=== PATIENT | female | born 1955 | race Caucasian/White ===

== ENCOUNTER 2017-11-07 18:00 | Inpatient (IN) | END 2017-11-11 17:50 | DRG 482 ==

== ENCOUNTER 2018-06-08 11:23 | Inpatient (IN) | payer OTHER ==
[2018-06-08] VITALS (31 sets, daily range): BP systolic 104–187; BP diastolic 50–83; PULSE 68–108; RESP 13–22; Ht 160 cm; Wt 50.1 kg
[~2018-06-08] VITALS: Ht 160 cm; Wt 50.1 kg
[~2018-06-08 11:23] MED LIST: ALEN70TA5 PO; ANAS1TAB PO; CALC1TAB79 PO; ERGO2000 PO; ESCI10TA PO; ESCI5TAB PO
--- NOTE | 2018-06-08 13:01 | HPN ---
Date/Time of Note Date/Time of Note DATE: 06/08/18 TIME: 13:00 Interval H&P Admission Note Pt. seen H&P reviewed: No system changes DINORA VICTORIA MD Jun 08, 2018 13:01
[2018-06-08] MEDS ORDERED: NEOSTIGMINE 3 MG/3 ML SYRINGE ONE (13:26)
[2018-06-08] MEDS ORDERED: PROPOFOL 20 ML ONE (13:26)
[2018-06-08] MEDS ORDERED: GLYCOPYRROLATE 0.4 MG INJ ONE (13:26)
[2018-06-08] MEDS ORDERED: ROCURONIUM 50 MG INJ ONE (13:26)
[2018-06-08] MEDS ORDERED: SUCCINYLCHOLINE CHLORIDE 100 MG/5 ML SYG IV ONE (13:26)
[2018-06-08] MEDS ORDERED: FENTAnyl 50 MCG/ML VIAL ONE (13:27)
[2018-06-08] MEDS ORDERED: ONDANSETRON 4 MG INJ ONE (13:27)
[2018-06-08] MEDS ORDERED: MIDAZOLAM 1 MG/ML 2 ML INJ ONE (13:27)
[2018-06-08] MEDS ORDERED: METOCLOPRAMIDE 10 MG INJ ONE (13:27)
[2018-06-08] MEDS ORDERED: morphine 10 MG INJ ONE (13:44)
--- NOTE | 2018-06-08 14:04 | PREAC ---
Date/Time of Note Date/Time of Note DATE: 06/08/18 TIME: 14:01 Anesthesia Eval and Record Evaluation Time Pre-Procedure Interview DATE: 06/08/18 TIME: 14:01 Age 62 Sex female NPO: 8 hrs Preoperative diagnosis Protrusion of hardware after hip fracture Planned procedure Removal of hardware R hip Past Medical History Past Medical History: Includes Cardio: HTN Surgery & Anesthesia Issues No known issue Meds Anticoagulation: No Beta Hu within 24 hr: Yes Reported Medications Alendronate Sodium* (Fosamax*) 70 Mg Tablet, 70 MG PO EVERY WEDNESDAY, #4 TAB 06/07/18 Ergocalciferol (Vitamin D2) (VITAMIN D2) 2,000 Unit Tablet, 2000 UNIT PO DAILY, TAB 06/07/18 Calcium Carbonate/Vitamin D3 (Oysco 500+D Tablet) 1 Each Tablet, 1 EACH PO BID, TAB 06/07/18 Anastrozole* (Arimidex*) 1 Mg Tablet, 1 MG PO DAILY, #30 TAB 06/07/18 Escitalopram Oxalate* (Lexapro*) 10 Mg Tablet, 10 MG PO QAM, #30 TAB 06/07/18 Escitalopram Oxalate* (Lexapro*) 5 Mg Tablet, 5 MG PO QHS, #30 TAB 06/07/18 Discontinued Reported Medications Alendronate Sodium* (Fosamax*) 70 Mg Tablet, 70 MG PO QWEEK 06/10/12 Calcium Carbonate/Vitamin D3 (Calcium 500 + D Tablet) 1 Tab Tablet, 1 TAB PO DAILY 06/10/12 Naproxen* (Naproxen EC*) 375 Mg Tablet.dr, 375 MG PO TID 06/10/12 Citalopram Hydrobromide* (Citalopram Hydrobromide*) 40 Mg Tablet, 40 MG PO DAILY 06/10/12 Trazodone Hcl* (Trazodone Hcl*) 50 Mg Tablet, 50 MG PO TID 06/10/12 Discontinued Scripts Acetaminophen (MAPAP) 325 Mg Tablet, 650 MG PO Q6H PRN for PAIN 1-3 AND OR ELEVATED TEMP for 7 Days, TAB Prov:ROGELIO KOVACS EFFICIENCY MINER BLASTING 11/11/17 Hydrocodone Bit-Acetaminophen (Hydrocodone Bit-APAP) 5-325MG Tablet, 1 TAB PO Q4H PRN for PAIN 4-6 for 7 Days, TAB Prov:ROGELIO KOVACS EFFICIENCY MINER BLASTING 11/11/17 Hydrocodone Bit-Acetaminophen (Hydrocodone Bit-APAP) 5-325MG Tablet, 1 TAB PO Q3H PRN for PAIN for 7 Days, TAB Prov:ROGELIO KOVACS EDU 11/11/17 Enoxaparin Sodium (Enoxaparin Sodium) 40 Mg/0.4 Ml Syringe, 40 MG SC DAILY for 7 Days Prov:ROGELIO KOVACS EDU 11/11/17 Polyethylene Glycol* (Polyethylene Glycol*) 17 Gm Powd.pack, 17 GM PO BID for 7 Days Prov:ROGELIO KOVACS EDU 11/11/17 Anastrozole* (Arimidex*) 1 Mg Tablet, 1 MG PO DAILY for 7 Days, TAB Prov:ROGELIO KOVACS EDU 11/11/17 Meds reviewed: Yes Allergies Coded Allergies: No Known Allergy (Unverified , 06/08/18) Allergies Reviewed: Yes Labs/Studies Labs Reviewed: Reviewed by anesthesiologist test: N/A Studies: ECG, CXR Pre-procedure Exam Last vitals Vital Signs Date Temp Pulse Resp B/P (MAP) Pulse Ox O2 O2 Flow FiO2 Time Delivery Rate 06/08/18 97.0 72 18 147/66 100 Room Air 12:16 (93) Airway: Adequate mouth opening, Adequate thyromental dist Mallampati: Mallampati II Teeth: Normal Lung: Normal Heart: Normal ASA Physical Status ASA physical status: 2 Emergency: None Planned Anesthetic General/MAC: ETT Planned Pain Management Parenteral pain med Pre-operative Attestations Prior to commencing anesthesia and surgery, the patient was re-evaluated, there was verification of: *The patient's identity *The results of appropriate recent lab work and preoperative vital signs *The above evaluation not changing prior to induction *Anesthetic plan, risk benefits, alternative and complications discussed with patient/family; questions answered; patient/family understands, accepts and wishes to proceed. 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
[2018-06-08] MEDS ORDERED: CEFAZOLIN 1 GM INJ ONE (14:15)
[2018-06-08] MEDS ORDERED: DIPHENHYDRAMINE 50 MG INJ IV PRN (14:30)
[2018-06-08] MEDS ORDERED: OXYCODONE/ACETAMINOPHEN (5/325) TAB PO PRN (14:30)
[2018-06-08] MEDS ORDERED: MEPERIDINE 25 MG INJ IV PRN (14:30)
[2018-06-08] MEDS ORDERED: HYDROmorphONE 1 MG/5 ML IV SYRINGE IV PRN (14:30)
[2018-06-08] MEDS ORDERED: LABETALOL HCL 20MG INJ IV PRN (14:30)
[2018-06-08] MEDS ORDERED: FENTAnyl 50 MCG/ML VIAL IV PRN (14:30)
[2018-06-08] MEDS ORDERED: morphine (1 MG/ML) 10ML SYRINGE IV PRN (14:30)
[2018-06-08] MEDS ORDERED: ONDANSETRON 4 MG INJ IV PRN ×2 (14:30→18:30)
[2018-06-08] MEDS ORDERED: hydrALAzine 20 MG INJ IV PRN (14:30)
[2018-06-08] MEDS ORDERED: METOCLOPRAMIDE 10 MG INJ IV PRN (14:30)
[2018-06-08] MEDS ORDERED: ALBUTEROL 0.083% (NEB) 2.5 MG/3 ML AMP HHN PRN (14:30)
[2018-06-08] MEDS ORDERED: SUGAMMADEX SODIUM 200 MG/2 ML VIAL IV ONE (15:06)
[2018-06-08] MEDS ORDERED: ALBUTEROL 0.083% (NEB) 2.5 MG/3 ML AMP ONE (15:12)
[2018-06-08] MEDS ORDERED: CEFAZOLIN 2 GM/50 ML (PMX) 50 ML IVPB SCH (15:30)
[2018-06-08] MEDS ORDERED: NACL 0.9% 3 ML SYG IV SCH ×2 (15:30→18:30)
[2018-06-08] MEDS ORDERED: morphine 2 MG INJ IV PRN (15:30)
[2018-06-08] MEDS ORDERED: HYDROCODONE/APAP (5/325) TAB PO PRN ×2 (15:30→18:30)
--- NOTE | 2018-06-08 15:31 | PAC ---
Date/Time of Note Date/Time of Note DATE: 06/08/18 TIME: 15:30 Post-Anesthesia Notes Post-Anesthesia Note Last documented vital signs Vital Signs Date Temp Pulse Resp B/P (MAP) Pulse Ox O2 O2 Flow FiO2 Time Delivery Rate 06/08/18 97.0 72 18 147/66 100 Room Air 12:16 (93) Activity: WNL Respiratory function: WNL Cardiovascular function: WNL Mental status: Baseline Pain reasonably controlled: Yes Hydration appropriate: Yes Nausea/Vomiting absent: Yes CASSIA SOLIZ Jun 08, 2018 15:31
--- NOTE | 2018-06-08 16:54 | SIPON ---
Date/Time of Note Date/Time of Note DATE: 06/08/18 TIME: 16:43 Operative Report Preoperative Diagnosis intertrochanteric fracture of Rt. hip s/p O.R.I.F. with protruding lag screw. Postoperative Diagnosis same Operation/Procedure Performed removal of Lag screw Rt. hip Surgeon see signature line curriculum assistant none Anesthesia: general Estimated blood loss: 10 - 50 ml's Transfusion Required none Specimen lag screw Grafts/Implants none Complications none DINORA VICTORIA MD Jun 08, 2018 16:53
--- NOTE | 2018-06-08 18:15 | HP ---
Date/Time of Note Date/Time of Note DATE: 06/08/18 TIME: 18:13 Assessment/Plan VTE Prophylaxis Risk score (from Nsg)>0 risk: 4 SCD applied (from Ns): Yes Pharmacological prophylaxis: NA/contraindicated Pharm contraindication: low risk/ambulating Lines/Catheters IV Catheter Type (from Nrsg): Saline Lock Assessment/Plan Assessment/Plan 62 yo woman with history of depression/anxiety presents for elective surgery. #R hip surgery - Continue opioids for pain - regular diet - PT, anticoag per ortho #Depression - Continue SSRI #Breast cancer - Continue anastrazole HPI/ROS Admit Date/Time Admit Date/Time Jun 08, 2018 at 11:23 Hx of Present Illness Ms. Church is a pleasant Farsi-speaking woman admitted after elective hip surgery. She was admitted here at [facility] on 11/07/18 for hip fracture. She had it repaired by Dr. Sheriff. About 2 months later she developed moderate aching hip pain, not requiring any analgesics even ibuprofen or tylenol. She was found to have a protruding screw. Today she was taken to OR for screw removal. Postoperatively she is doing well, no complaints. Vitals unremarkable. ROS 12 point review of systems done, negative except per HPI. PMH/Family/Social Past Medical History Breast cancer s/p mastectomy now on ADT. Medications Current Medications Morphine Sulfate (morphine (REC)) 4 mg PACU ORDER PRN IV MOD PAIN 4-6; Start 06/08/18 at 14:30; Stop 06/08/18 at 21:00 Hydromorphone HCl (Dilaudid) 0.4 mg PACU PRN IV MOD PAIN 4-6; Start 06/08/18 at 14:30; Stop 06/08/18 at 21:00 Fentanyl (Sublimaze) 25 mcg PACU ORDER PRN IV MILD PAIN 1-3; Start 06/08/18 at 14:30; Stop 06/08/18 at 21:00 Oxycodone/ Acetaminophen (Percocet (5/ 325)) 1 tab PACU ORDER PRN PO .PAIN 1-5; Start 06/08/18 at 14:30; Stop 06/08/18 at 21:00 Ondansetron HCl (Zofran Inj) 4 mg PACU ORDER PRN IV NAUSEA/VOMITING; Start 06/08/18 at 14:30; Stop 06/08/18 at 21:00 Metoclopramide HCl (Reglan) 10 mg PACU ORDER PRN IV NAUSEA/VOMITING; Start 06/08/18 at 14:30; Stop 06/08/18 at 21:00 Labetalol HCl (Labetalol) 5 mg PACU ORDER PRN IV HIGH BLOOD PRESSURE; Start 06/08/18 at 14:30; Stop 06/08/18 at 21:00 Hydralazine HCl (Apresoline) 5 mg PACU ORDER PRN IV HIGH BLOOD PRESSURE Last administered on 06/08/18at 16:26; Admin Dose 5 MG; Start 06/08/18 at 14:30; Stop 06/08/18 at 21:00 Albuterol (Proventil 0.083% (Neb)) 2.5 mg PACU ORDER PRN HHN .WHEEZING; Start 06/08/18 at 14:30; Stop 06/08/18 at 21:00 Meperidine HCl (Demerol) 25 mg PACU ORDER PRN IV .RIGORS; Start 06/08/18 at 14:30; Stop 06/08/18 at 21:00 Diphenhydramine HCl (Benadryl) 25 mg PACU ORDER PRN IV .PRURITUS; Start 06/08/18 at 14:30; Stop 06/08/18 at 21:00 Cefazolin Sodium/ Dextrose 50 ml @ 100 mls/hr Q8H IVPB ; Start 06/08/18 at 15:30; Stop 06/09/18 at 07:59 IV Flush (NS 3 ml) 3 ml per protocol IV ; Start 06/08/18 at 15:30 Enoxaparin Sodium (Lovenox) 40 mg DAILY SC ; Start 06/09/18 at 09:00 Morphine Sulfate (morphine) 2 mg Q4H PRN IV SEVERE PAIN LEVEL 7-10; Start 06/08/18 at 15:30 Acetaminophen/ Hydrocodone Bitart ([place] (5/325)) 1 tab Q3H PRN PO MODERATE PAIN LEVEL 4-6; Start 06/08/18 at 15:30 Anastrozole (Arimidex) 1 mg DAILY PO ; Start 06/09/18 at 09:00; Status UNV Calcium/Vitamin D (Oyster Shell/ Vit-D (500/200)) 1 tab BID PO ; Start 06/08/18 at 21:00; Status UNV Escitalopram Oxalate (Lexapro) 5 mg QHS PO ; Start 06/08/18 at 21:00; Status UNV Escitalopram Oxalate (Lexapro) 10 mg QAM PO ; Start 06/09/18 at 09:00; Status UNV Coded Allergies: No Known Allergy (Unverified , 06/08/18) Past Surgical History L mastectomy R hip fracture s/p repair 10/2017 Past Surgical Hx: other Family History Significant Family History: no pertinent family hx Social History Alcohol Use: none Smoking Status: Never smoker Drug Use: none Exam/Review of Systems Vital Signs Vitals Vital Signs Date Temp Pulse Resp B/P (MAP) Pulse Ox O2 O2 Flow FiO2 Time Delivery Rate 06/08/18 74 20 141/55 99 Room Air 17:27 (83) 06/08/18 98.2 15:25 Exam Exam Gen: Elderly woman well appearing lying in no distress Eyes: PERRL, no icterus HEENT: Moist mucous membranes, no pharyngeal erythema Neck: No lymphadenopathy Card: Regular rate and rhythm, no murmurs Pulm: Clear to auscultation bilaterally Abd: Soft, nontender, nondistended. Ext: R hip dressing clean/dry/intact. Skin: warm, dry, well perfused. RACQUEL GUEVARA MD Jun 08, 2018 18:15
--- NOTE | 2018-06-08 19:13 | OPR ---
DATE OF OPERATION: 06/08/2018 PREOPERATIVE DIAGNOSIS: Protruding lag screw in the right hip, status post open reduction internal f ixation of the intertrochanteric fracture of the right hip. POSTOPERATIVE DIAGNOSIS: Protruding lag screw in the right hip, status post open reduction internal fixation of the intertrochanteric fracture of the right hip. Rule out possible nonunion. OPERATION PERFORMED: Removal of the lag screw from the right hip. SURGEON: Hortencia Sheriff M.D. PROCEDURE AND FINDINGS: Under anesthesia, the patient was placed on left lateral decubitus position with the right side up. Usual prep was done exposing the right hip and right lower extremity. First , the previous incision, proximal end of the lag screw was exposed and the lag screw was removed. After the removal of the screws range of motion of the right hip was carried out under fluoroscopy ex amination. The alignment seems to be maintained. However, whether there is a nonunion or not it was not clear. After irrigation and hemostasis, the incision was closed using 0 Vicryl for muscle and fascia and 2-0 Vicryl for subcutaneous tissues. Final skin closure was carried out with skin brooklynn. Usual steri le pressure dressings were applied. Dictated By: HORTENCIA POON/MELISSA Conf#: [id number] DID#: [id number]
[2018-06-08] MEDS ORDERED: ESCITALOPRAM 10 MG TAB PO SCH (21:00)
[2018-06-08] MEDS: CEFAZOLIN 2 GM/50 ML (PMX) 50 ML IVPB SCH (21:30)
[2018-06-08] MEDS: SENNA TAB PO SCH (21:30)
[2018-06-08] MEDS: CALCIUM/VITAMIN D (500/200) TAB PO SCH (21:31)
[2018-06-08] MEDS: OXYBUTYNIN 5 MG TAB PO SCH (21:31)
[2018-06-09] VITALS: BP 118/89; PULSE 89; RESP 20
[2018-06-09] MEDS: CEFAZOLIN 2 GM/50 ML (PMX) 50 ML IVPB SCH ×2 (05:27→13:50)
[2018-06-09 05:34] VITALS: BP 133/62; PULSE 76; RESP 18
[2018-06-09 07:30] VITALS: BP 124/58; PULSE 69; RESP 18
[2018-06-09 07:40] VITALS: BP 127/75; PULSE 80; RESP 18
[2018-06-09] MEDS: CALCIUM/VITAMIN D (500/200) TAB PO SCH (08:16)
[2018-06-09] MEDS: OXYBUTYNIN 5 MG TAB PO SCH (08:18)
[2018-06-09] MEDS: SENNA TAB PO SCH (08:18)
[2018-06-09] MEDS ORDERED: ANASTROZOLE 1 MG TAB PO SCH (09:00)
[2018-06-09] MEDS ORDERED: ENOXAPARIN 40 MG/0.4 ML SYG SC SCH (09:00)
[2018-06-09] MEDS ORDERED: ESCITALOPRAM 10 MG TAB PO SCH (09:00)
--- NOTE | 2018-06-09 13:55 | PDOCDIS ---
Discharge Instructions DIAGNOSIS Discharge Diagnosis R hip revision surgery CONDITION [id number] Patient Condition: Ennie4i Good ACTIVITY: [id number] Activity Restrictions: [id number] Slowly Increase Activity Rest between Activity Avoid heavy lifting Avoid Heavy Housework No Weight Bearing [id number] Activity Restrictions Comment: [id number] non weight bearing on RLE RACQUEL GUEVARA MD Jun 09, 2018 13:55
--- NOTE | 2018-06-09 15:05 | DS ---
Date/Time of Note Date/Time of Note DATE: 06/09/18 TIME: 15:04 Discharge Summary Admission/Discharge Info Admit Date/Time Jun 08, 2018 at 11:23 Discharge Date/Time Jun 09, 2018 Discharge Diagnosis R hip revision surgery Patient Condition: Good Consults Dr. Sheriff, orthopedic surgery Procedures Removal of the lag screw from the right hip., 06/08/18 Hx of Present Illness Ms. Church is a pleasant Farsi-speaking woman admitted after elective hip surgery. She was admitted here at [facility] on 11/07/18 for hip fracture. She had it repaired by Dr. Sheriff. About 2 months later she developed moderate aching hip pain, not requiring any analgesics even ibuprofen or tylenol. She was found to have a protruding screw. Today she was taken to OR for screw removal. Postoperatively she is doing well, no complaints. Vitals unremarkable. Hospital Course She had an uneventful postoperative course. Did not require any analgesia. Ambul ated with physical therapy in the AM. Home Meds Reported Medications Alendronate Sodium* (Fosamax*) 70 Mg Tablet, 70 MG PO EVERY WEDNESDAY, #4 TAB 06/07/18 Ergocalciferol (Vitamin D2) (VITAMIN D2) 2,000 Unit Tablet, 2000 UNIT PO DAILY, TAB 06/07/18 Calcium Carbonate/Vitamin D3 (Oysco 500+D Tablet) 1 Each Tablet, 1 EACH PO BID, TAB 06/07/18 Anastrozole* (Arimidex*) 1 Mg Tablet, 1 MG PO DAILY, #30 TAB 06/07/18 Escitalopram Oxalate* (Lexapro*) 10 Mg Tablet, 10 MG PO QAM, #30 TAB 06/07/18 Escitalopram Oxalate* (Lexapro*) 5 Mg Tablet, 5 MG PO QHS, #30 TAB 06/07/18 Discontinued Reported Medications Alendronate Sodium* (Fosamax*) 70 Mg Tablet, 70 MG PO QWEEK 06/10/12 Calcium Carbonate/Vitamin D3 (Calcium 500 + D Tablet) 1 Tab Tablet, 1 TAB PO DAILY 06/10/12 Naproxen* (Naproxen EC*) 375 Mg Tablet., 375 MG PO TID 06/10/12 Citalopram Hydrobromide* (Citalopram Hydrobromide*) 40 Mg Tablet, 40 MG PO DAILY 06/10/12 Trazodone Hcl* (Trazodone Hcl*) 50 Mg Tablet, 50 MG PO TID 06/10/12 Discontinued Scripts Acetaminophen (MAPAP) 325 Mg Tablet, 650 MG PO Q6H PRN for PAIN 1-3 AND OR ELEVATED TEMP for 7 Days, TAB Prov:ROGELIO KOVACS NP 11/11/17 Hydrocodone Bit-Acetaminophen (Hydrocodone Bit-APAP) 5-325MG Tablet, 1 TAB PO Q4H PRN for PAIN 4-6 for 7 Days, TAB Prov:ROGELIO KOVACS NP 11/11/17 Hydrocodone Bit-Acetaminophen (Hydrocodone Bit-APAP) 5-325MG Tablet, 1 TAB PO Q3H PRN for PAIN for 7 Days, TAB Prov:ROGELIO KOVACS NP 11/11/17 Enoxaparin Sodium (Enoxaparin Sodium) 40 Mg/0.4 Ml Syringe, 40 MG SC DAILY for 7 Days Prov:ROGELIO KOVACS NP 11/11/17 Polyethylene Glycol* (Polyethylene Glycol*) 17 Gm Powd.pack, 17 GM PO BID for 7 Days Prov:ROGELIO KOVACS NP 11/11/17 Anastrozole* (Arimidex*) 1 Mg Tablet, 1 MG PO DAILY for 7 Days, TAB Prov:ROGELIO KOVACS NP 11/11/17 Primary Care Provider Not On Staff Doctor Time spent on discharge: > 30 minutes Pending Labs Laboratory Tests Test 06/09/18 04:23 06/09/18 07:50 White Blood Count 6.7 10^3/ul (4.8-10.8) Red Blood Count 4.07 10^6/ul (4.20-5.40) Hemoglobin 12.0 g/dl (12.0-16.0) Hematocrit 37.9 % (37.0-47.0) Mean Corpuscular Volume 93.1 fl (82.0-101.0) Mean Corpuscular Hemoglobin 29.5 pg (29.0-33.0) Mean Corpuscular 31.7 g/dl (32.0-37.0) Hemoglobin Concent Red Cell Distribution Width 12.9 % (11.5-14.5) Platelet Count 244 10^3/UL (140-415) Mean Platelet Volume 10.8 fl (7.4-10.4) Immature Granulocytes % 0.300 % (0.001-0.429) Neutrophils % 74.2 % (39.0-77.0) Lymphocytes % 14.6 % (15.0-51.0) Monocytes % 10.5 % (0.0-11.0) Eosinophils % 0.1 % (0.0-7.0) Basophils % 0.3 % (0.0-2.0) Nucleated Red Blood Cells % 0.0 /100WBC (0.0-0.0) Immature Granulocytes # 0.020 10^3/ul (0.0-0.031) Neutrophils # 5.0 10^3/ul (1.6-7.5) Lymphocytes # 1.0 10^3/ul (0.8-2.9) Monocytes # 0.7 10^3/ul (0.3-0.9) Eosinophils # 0.0 10^3/ul (0.0-0.5) Basophils # 0.0 10^3/ul (0.0-0.1) Nucleated Red Blood Cells # 0.0 10^3/ul (0.0-0.0) Sodium Level 140 mmol/L (135-144) Potassium Level 3.9 mmol/L (3.5-5.1) Chloride Level 103 mmol/L (97-110) Carbon Dioxide Level 29 mmol/L (21-31) Anion Gap 8 (5-13) Blood Urea Nitrogen 19 mg/dl (7-20) Creatinine 0.51 mg/dl (0.44-1.00) Est Glomerular Filtrat > 60 mL/min (>60) Rate mL/min Glucose Level 104 mg/dl (70-220) Hemoglobin A1c 5.1 % (0-5.9) Calcium Level 9.4 mg/dl (8.4-10.2) Phosphorus Level 4.5 mg/dl (2.5-4.9) Magnesium Level 2.0 mg/dl (1.7-2.5) Total Bilirubin 0.3 mg/dl (0.2-1.3) Direct Bilirubin 0.00 mg/dl (0.00-0.20) Indirect Bilirubin 0.3 mg/dl (0-1.1) Aspartate Amino 32 IU/L (15-46) Transf (AST/SGOT) Alanine 21 IU/L (13-69) Aminotransferase (ALT/SGPT) Alkaline Phosphatase 41 IU/L (42-121) Total Protein 6.9 g/dl (6.1-8.1) Albumin 3.9 g/dl (3.3-4.9) Globulin 3.00 g/dl (1.3-3.2) Albumin/Globulin Ratio 1.30 Thyroid Stimulating 0.954 MIU/L (0.465-4.680) Hormone (TSH) Lab Scanned Report REFER[facility] LAB [id number] RACQUEL GUEVARA MD Jun 09, 2018 15:05
== END 2018-06-09 15:10 | disposition home or self-care (01) | DRG 481 ==
LOC: REC 11:23 → MS1 18:43
PROVIDERS: ADMIT Orthopaedic Surgery; ATTEND Orthopaedic Surgery
PROC: 0SP904Z Removal of Internal Fixation Device from Right Hip Joint, Open Approach (ICD-10-PCS; principal; 2018-06-08 13:00)
DX: T84.89XA Other specified complication of internal orthopedic prosthetic devices, implants and grafts, initial encounter (principal); C79.81 Secondary malignant neoplasm of breast; Y79.8 Miscellaneous orthopedic devices associated with adverse incidents, not elsewhere classified; F32.9 Major depressive disorder, single episode, unspecified; F41.9 Anxiety disorder, unspecified; C80.1 Malignant (primary) neoplasm, unspecified; Z87.81 Personal history of (healed) traumatic fracture
CPT/HCPCS: 73500; 73700; 80053; 83036; 83735; 84100; 84443; 85025; 88300; 97116; 97161; 97530; J0360; J0690; J1650; J2250; J2270; J2405; J2710; J2765; J3010